=== PATIENT | male | born 1970 | race Two or more races ===

== ENCOUNTER 2019-03-15 07:15 | Emergency (ER) | payer OTHER ==
[~2019-03-15] VITALS: Ht 177.8 cm; Wt 75.0 kg
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
[2019-03-15] MEDS ORDERED: Cholesterol (07:25)
[2019-03-15] MEDS ORDERED: KETOROLAC 30 MG/1 ML IM ONE (07:30)
[2019-03-15] MEDS ORDERED: KETOROLAC 30 MG/1 ML ONE (07:31)
--- NOTE | 2019-03-15 07:34 | NUR ---
pt to CT
[2019-03-15 07:52] VITALS: BP 117/87
--- NOTE | 2019-03-15 07:52 | NUR ---
pt upright on gurney awake & more comfortable, responds approp to staff, NAD, comfort measures provide, at BS, call light wihtn reach.
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
--- NOTE | 2019-03-15 08:05 | NUR ---
Jarret bermeo in ED - 03/15/19 at 0812 by CHRIS Patient given discharge instructions and Rx, they have confirmed that they understand the instructions. Patient ambulatory with steady gait.
--- NOTE | 2019-03-15 08:57 | NUR ---
pt remains upright on gurney awake & more comfortable, responds approp to staff, NAD, comfort measures provide, at BS, call light wihtn reach.
--- NOTE | 2019-03-15 09:07 | NUR ---
Patient given discharge instructions and Rx, they have confirmed that they understand the instructions. Patient ambulatory with steady gait.
== END 2019-03-15 09:08 | disposition home or self-care (01) ==
LOC: ED 08:44
DX: S16.1XXA Strain of muscle, fascia and tendon at neck level, initial encounter (principal); S39.012A Strain of muscle, fascia and tendon of lower back, initial encounter; V49.49XA Driver injured in collision with other motor vehicles in traffic accident, initial encounter; Y93.89 Activity, other specified; Y92.410 Unspecified street and highway as the place of occurrence of the external cause; Y99.8 Other external cause status
CPT/HCPCS: 72110; 72125; 96372; 99284; J1885